=== PATIENT | male | born 1970 | race Asian ===

== ENCOUNTER → 2023-07-30 | Day surgery (SDC) | payer OTHER ==
[~2023-07-30] MED LIST: ALLEGRA ALLERGY60 MG PO; DYMISTA NASAL S23 GM INH; GABAPENTIN400 MG PO; IMITREX25 MG PO; LACTATED RINGER'S 1,000 ML ONE; LIDOCAINE HCL 2% LOCAL INJ 5 ML SDV VIAL INJ ONE; MIDAZOLAM HCL 2 MG/2 ML VIAL ONE; MONTELUKAST SOD10 MG PO; PANTOPRAZOLE SO40 MG PO; PROPOFOL IV EMULSION 10 MG/ML 20 ML VIAL ONE; SPIRIVA18 MCG INH
[2023-07-30 10:58] VITALS: TEMP 97.2
[2023-07-30 11:15] VITALS: BP 135/96; PULSE 77; RESP 16; O2SAT 100
== END | disposition home or self-care (01) ==
LOC: OR 08:21
PROVIDERS: ATTEND Internal Medicine Gastroenterology
DX: K21.00 Gastro-esophageal reflux disease with esophagitis, without bleeding (principal); K31.7 Polyp of stomach and duodenum; K29.60 Other gastritis without bleeding; K29.50 Unspecified chronic gastritis without bleeding; K44.9 Diaphragmatic hernia without obstruction or gangrene; K31.A0 Gastric intestinal metaplasia, unspecified; G47.33 Obstructive sleep apnea (adult) (pediatric); R03.0 Elevated blood-pressure reading, without diagnosis of hypertension; I49.9 Cardiac arrhythmia, unspecified; J45.909 Unspecified asthma, uncomplicated; Z79.1 Long term (current) use of non-steroidal anti-inflammatories (NSAID); Z79.899 Other long term (current) drug therapy; Z68.33 Body mass index [BMI] 33.0-33.9, adult; Z86.711 Personal history of pulmonary embolism
CPT/HCPCS: 43239; 88305; 88342; J2001; J2250; J2704; J7121; 88304